=== PATIENT | male | born 1940 | race Caucasian/White ===

== ENCOUNTER 2018-09-01 10:02 | Emergency (ER) | payer MEDICARE, BC ==
[~2018-09-01] VITALS: Ht 167.6 cm; Wt 75.9 kg
--- NOTE | 2018-09-01 10:33 | NUR ---
PT AMBULATORY TO ROOM FROM LOBBY WITH STEADY GAIT.
--- NOTE | 2018-09-01 11:11 | NUR ---
PT PRESENTS TO ED FOR 2 MOS PERSISTANT DRY NON PRODUCTIVE COUGH. PT RESTIONG ON GURNEY. CP MONIOTRS IN PLACE. CALL LIGHT IN REACH. LAB TO BEDSIDE FOR BLOOD DRAW INCLUDING CULTURES. ALL CONCERNS ADRESSED AT THIS TIME.
[2018-09-01 11:43] LABS: BASOPHILS # (AUTO) 0.01 x10^3/uL (0-0.1); BASOPHILS % (AUTO) 0 % (0-1); EOSINOPHILS % (AUTO) 0 % (1-7); LYMPHOCYTES # (AUTO) 0.32 x10^3/uL (1-3.4); LYMPHOCYTES % (AUTO) 6 % (22-44); MD NO; MEAN CORPUSCULAR HEMOGLOBIN 31.6 pg (27.5-34.5); MEAN CORPUSCULAR HGB CONC 33.3 g/dL (33.2-36.2); MEAN CORPUSCULAR VOLUME 95.1 fL (81-97); MEAN PLATELET VOLUME 10.1 fL (7.4-10.4); MONOCYTES # (AUTO) 0.49 x10^3/uL (0.2-0.8); MONOCYTES % (AUTO) 9 % (2-9); NEUTROPHILS # (AUTO) 4.72 x10^3/uL (1.8-6.8); NEUTROPHILS % (AUTO) 85 % (42-75); PLATELET COUNT 198 x10^3/uL (130-400); RED BLOOD COUNT 5.23 x10^6/uL (4.38-5.82); RED CELL DISTRIBUTION WIDTH 14.6 % (9.4-14.8)
[2018-09-01 11:43] LABS: ALBUMIN 4.3 g/dL (3.4-5.0); ANION GAP 4 mmol/L (5-15); CHLORIDE 108 mmol/L (98-107)
--- NOTE | 2018-09-01 11:47 | NUR ---
[facility] REPORT TO ASHLEY BENSON
[2018-09-01 11:50] LABS: CREATININE 1.06 mg/dL (0.7-1.3)
[2018-09-01] MEDS ORDERED: ACETAMINOPHEN 500 MG TABLET ONE (12:17)
[2018-09-01] MEDS ORDERED: ACETAMINOPHEN 500 MG TABLET PO ONE (12:30)
--- NOTE | 2018-09-01 12:36 | NUR ---
PT MEDICATED FOR FEVER, PT SWABBED FOR FLU.
[2018-09-01 13:00] LABS: RAPID INFLUENZA A Negative (Negative); RAPID INFLUENZA B Negative (Negative)
--- NOTE | 2018-09-01 13:58 | NUR ---
Patient/Caregiver given discharge instructions and they have confirmed that they understand the instructions. Patient ambulatory with steady gait.
[2018-09-01 13:59] VITALS: BP 122/72
== END 2018-09-01 14:01 | disposition home or self-care (01) ==
LOC: ED 12:26
DX: J98.01 Acute bronchospasm (principal); R05 Cough; I10 Essential (primary) hypertension; Z90.49 Acquired absence of other specified parts of digestive tract; Z88.1 Allergy status to other antibiotic agents; Z88.0 Allergy status to penicillin; Z87.891 Personal history of nicotine dependence
CPT/HCPCS: 36415; 71046; 80048; 82040; 83605; 83880; 84145; 85025; 87040; 87400; 93005; 99284

== ENCOUNTER → 2019-08-20 | Outpatient (CLI) | payer MEDICARE, BC | END | disposition home or self-care (01) | LOC: CFH 14:42 | PROVIDERS: ATTEND Nurse Practitioner Family | DX: I08.3 Combined rheumatic disorders of mitral, aortic and tricuspid valves (principal); I11.9 Hypertensive heart disease without heart failure; E78.5 Hyperlipidemia, unspecified; R01.1 Cardiac murmur, unspecified; Z87.891 Personal history of nicotine dependence | CPT/HCPCS: 76706; 93306 ==

== ENCOUNTER → 2019-11-20 | Outpatient (CLI) | payer MEDICARE, BC | END | disposition home or self-care (01) | LOC: RAD 16:22 | PROVIDERS: ATTEND Nurse Practitioner Family | DX: R05 Cough (principal); R76.12 Nonspecific reaction to cell mediated immunity measurement of gamma interferon antigen response without active tuberculosis | CPT/HCPCS: 71046 ==

== ENCOUNTER → 2019-11-21 | Outpatient (CLI) | payer MEDICARE, BC ==
[2019-11-24 11:14] LABS: QUANTIFERON TB Ag1-NIL 2.77 (0.000-0.000)
== END | disposition home or self-care (01) ==
LOC: LAB 09:41
PROVIDERS: ATTEND Nurse Practitioner Family
DX: R76.12 Nonspecific reaction to cell mediated immunity measurement of gamma interferon antigen response without active tuberculosis (principal)
CPT/HCPCS: 36415; 86480